=== PATIENT | male | born 1970 | race Caucasian/White ===

== ENCOUNTER 2018-10-10 08:56 | Day surgery (SDC) | payer BC ==
[2018-10-10] MEDS ORDERED: MIDAZOLAM 1 MG/ML 2 ML INJ ×2 (10:48)
[2018-10-10] MEDS ORDERED: FENTAnyl 50 MCG/ML VIAL (10:48)
== END 2018-10-10 12:32 | disposition home or self-care (01) ==
LOC: GIL 08:56
DX: Z12.11 Encounter for screening for malignant neoplasm of colon (principal); Z80.0 Family history of malignant neoplasm of digestive organs
CPT/HCPCS: 45378